=== PATIENT | male | born 2000 | race Two or more races ===

== ENCOUNTER → 2023-10-17 | Outpatient (CLI) | payer MEDICAID ==
[2023-10-17 15:56] LABS: ALBUMIN 3.1 G/DL (3.2-5.2); ALKALINE PHOSPHATASE 74 U/L (46-116); ALT/SGPT 28 U/L (7.0-40); AST/SGOT 24 U/L (<34); BILIRUBIN,TOTAL 0.5 MG/DL (0.3-1.2); BLOOD UREA NITROGEN 18 MG/DL (9-23); CALCIUM LEVEL 8.3 MG/DL (8.5-10.1); CARBON DIOXIDE LEVEL 27 MMOL/L (20-31); CHLORIDE LEVEL 107 MMOL/L (98-107); CREATININE FOR GFR 0.92 MG/DL (0.70-1.30); GLOMERULAR FILTRATION RATE > 60.0 (>60); GLUCOSE, FASTING 78 MG/DL (60-100); SODIUM LEVEL 139 MMOL/L (136-145); TOTAL PROTEIN 8.3 G/DL (5.7-8.2)
[2023-10-17 16:08] LABS: HEPATITIS B SURFACE ANTIGEN NEGATIVE (NEGATIVE)
[2023-10-17 16:29] LABS: HEPATITIS C VIRUS ABY INDEX 0.21 INDEX (<0.8)
[2023-10-20 03:07] LABS: % CD8 Pos Lymph 56.8 % (12.0-35.5); %CD4 Pos Lymphs 11.5 % (30.8-58.5); ABS Eosinophils 0.1 x10E3/uL (0.0-0.4); ABS Lymphs 0.9 x10E3/uL (0.7-3.1); ABS Monocytes 0.3 x10E3/uL (0.1-0.9); ABS Neutophils 2.1 x10E3/uL (1.4-7.0); Abs CD4 Helper 104 /uL (359-1519); Abs CD8 Suppres 511 /uL (109-897); Eosinophils 3 % (Not Estab.); HCT 35.8 % (37.5-51.0); HEPATITIS A IgG TOTAL Positive (Negative); HEPATITIS B CORE ANTIBODY IGG Negative (Negative); HGB 11.8 g/dL (13.0-17.7); HIV-1 RNA PCR QUANT 2 LC550285 520000 copies/mL (.); HIV-1 RNA PCR QUANT 3 LC550285 5.716 (.); HSV TYPE II IgG SPECIFIC <0.91 index (0.00-0.90); Immature Grans 0 % (Not Estab.); Lymphocytes 28 % (Not Estab.); MCH 27.8 pg (26.6-33.0); MCV 84 fL (79-97); Monocytes 8 % (Not Estab.); Neutrophils 60 % (Not Estab.); Platelets 305 x10E3/uL (150-450); RBC 4.24 x10E6/uL (4.14-5.80); RDW 13.3 % (11.6-15.4); TOXOPLASMA IgG ABY <3.0 IU/mL (0.0-7.1); WBC 3.4 x10E3/uL (3.4-10.8)
== END ==
LOC: M PLALAB 11:57
PROVIDERS: ATTEND Internal Medicine Infectious Disease
DX: B20 Human immunodeficiency virus [HIV] disease (principal)

== ENCOUNTER → 2024-01-16 | Outpatient (CLI) | payer MEDICAID, OTHER ==
[2024-01-16 14:25] LABS: ALBUMIN 3.6 G/DL (3.2-5.2); ALKALINE PHOSPHATASE 81 U/L (46-116); ALT/SGPT 23 U/L (7.0-40); AST/SGOT 16 U/L (<34); BILIRUBIN,TOTAL 0.5 MG/DL (0.3-1.2); BLOOD UREA NITROGEN 11 MG/DL (9-23); CALCIUM LEVEL 9.1 MG/DL (8.5-10.1); CARBON DIOXIDE LEVEL 29 MMOL/L (20-31); CHLORIDE LEVEL 106 MMOL/L (98-107); CREATININE FOR GFR 0.61 MG/DL (0.70-1.30); GLOMERULAR FILTRATION RATE > 60.0 (>60); GLUCOSE, FASTING 90 MG/DL (60-100); POTASSIUM SERUM 4.1 MMOL/L (3.5-5.1); SODIUM LEVEL 141 MMOL/L (136-145); TOTAL PROTEIN 8.5 G/DL (5.7-8.2)
[2024-01-17 09:08] LABS: RPR REACTIVE (NON-REACTIVE)
[2024-01-17 14:12] LABS: % CD4+ LYMPHS 6.5 % (30.8-58.5); ABSOLUTE CD4 HELPER 130 /uL (359-1519); BASOPHILS 1 % (Not Estab.); BASOPHILS ABSOLUTE 0.1 x10E3/uL (0.0-0.2); EOSINOPHILS 2 % (Not Estab.); EOSINOPHILS ABSOLUTE 0.2 x10E3/uL (0.0-0.4); HCT 42.4 % (37.5-51.0); HGB 13.6 g/dL (13.0-17.7); LYMPHOCYTES 30 % (Not Estab.); MCH 27.5 pg (26.6-33.0); MCHC 32.1 g/dL (31.5-35.7); MCV 86 fL (79-97); MONOCYTES 10 % (Not Estab.); MONOCYTES ABSOLUTE 0.7 x10E3/uL (0.1-0.9); NEUTROPHILS 56 % (Not Estab.); NEUTROPHILS ABSOLUTE 3.8 x10E3/uL (1.4-7.0); PLT 267 x10E3/uL (150-450); RBC 4.94 x10E6/uL (4.14-5.80); RDW 14.2 % (11.6-15.4); WBC 6.8 x10E3/uL (3.4-10.8)
[2024-01-18 12:19] LABS: HIV-1 RNA PCR QUANT 2 643000 copies/mL (NOT DETECTED); HIV-1 RNA PCR QUANT 3 5.81 (NOT DETECTED); TREPONEMA PALLIDUM ANTIBODIES POSITIVE (NEGATIVE)
== END ==
LOC: M PLALAB 09:05
PROVIDERS: ATTEND Internal Medicine Infectious Disease
DX: B20 Human immunodeficiency virus [HIV] disease (principal)

== ENCOUNTER → 2024-04-30 | Outpatient (CLI) | payer OTHER ==
[2024-04-30 18:18] LABS: APPEARANCE, URINE CLEAR (CLEAR); BACTERIA, URINE AUTO NEGATIVE (NEGATIVE); BILIRUBIN, URINE AUTO NEGATIVE (NEGATIVE); BLOOD, URINE BLOOD NEGATIVE (NEGATIVE); COLOR, URINE YELLOW (YELLOW); GLUCOSE, URINE (UA) AUTO NEGATIVE (NEGATIVE); KETONE, URINE AUTO NEGATIVE (NEGATIVE); LEUKOCYTE ESTERASE, URINE AUTO NEGATIVE (NEGATIVE); NITRITE, URINE AUTO NEGATIVE (NEGATIVE); PROTEIN, URINE AUTO NEGATIVE (NEGATIVE); RBC, URINE AUTO 1 /HPF (0-3); SPECIFIC GRAVITY URINE AUTO 1.023 (1.002-1.035); SQUAMOUS EPITHELIAL CELL UR AU 0 /HPF (0-6); UROBILINOGEN, URINE AUTO 0.2 mg/dL (0.0-2.0); WBC, URINE AUTO 0 /HPF (0-3)
[2024-04-30 18:46] LABS: ALBUMIN 3.6 G/DL (3.2-5.2); ALKALINE PHOSPHATASE 90 U/L (40-129); ALT/SGPT 34 U/L (7.0-40); AST/SGOT 22 U/L (<34); BILIRUBIN,TOTAL 0.3 MG/DL (0.3-1.2); BLOOD UREA NITROGEN 15 MG/DL (9-23); CALCIUM LEVEL 9.8 MG/DL (8.5-10.1); CARBON DIOXIDE LEVEL 28 MMOL/L (20-31); CHLORIDE LEVEL 105 MMOL/L (98-107); CREATININE FOR GFR 0.66 MG/DL (0.70-1.30); GLOMERULAR FILTRATION RATE > 60.0 (>60); GLUCOSE, FASTING 94 MG/DL (60-100); POTASSIUM SERUM 4.3 MMOL/L (3.5-5.1); SODIUM LEVEL 140 MMOL/L (136-145); TOTAL PROTEIN 8.9 G/DL (5.7-8.2)
[2024-04-30 18:53] LABS: HEPATITIS B SURFACE ANTIBODY NEGATIVE (POSITIVE)
[2024-05-02 15:07] LABS: ABSOLUTE CD4 HELPER 198 /uL (359-1519); BASOPHILS 1 % (Not Estab.); BASOPHILS ABSOLUTE 0.1 x10E3/uL (0.0-0.2); COMMENTS FOR T-CELL CD4 Note: (.); EOSINOPHILS 4 % (Not Estab.); EOSINOPHILS ABSOLUTE 0.3 x10E3/uL (0.0-0.4); HCT 41.3 % (37.5-51.0); HGB 13.3 g/dL (13.0-17.7); LYMPHOCYTES 26 % (Not Estab.); LYMPHOCYTES ABSOLUTE 2.2 x10E3/uL (0.7-3.1); MCH 27.9 pg (26.6-33.0); MCHC 32.2 g/dL (31.5-35.7); MCV 87 fL (79-97); MONOCYTES 9 % (Not Estab.); MONOCYTES ABSOLUTE 0.8 x10E3/uL (0.1-0.9); NEUTROPHILS 59 % (Not Estab.); PLT 333 x10E3/uL (150-450); RBC 4.76 x10E6/uL (4.14-5.80); WBC 8.5 x10E3/uL (3.4-10.8)
== END ==
LOC: M PLALAB 14:21
PROVIDERS: ATTEND Internal Medicine Infectious Disease
DX: B20 Human immunodeficiency virus [HIV] disease (principal); Z23 Encounter for immunization; A53.9 Syphilis, unspecified

== ENCOUNTER 2024-05-16 08:05 | Emergency (ER) | payer OTHER ==
[~2024-05-16] VITALS: Ht 160 cm; Wt 81.3 kg
[2024-05-16] MEDS ORDERED: NAPR-885 PO (10:41)
[2024-05-16 10:51] VITALS: BP 124/52; TEMP 98.2; O2SAT 98
== END 2024-05-16 10:53 | disposition home or self-care (01) ==
LOC: M ED 08:05
DX: S60.221A Contusion of right hand, initial encounter (principal); W27.8XXA Contact with other nonpowered hand tool, initial encounter; Y92.9 Unspecified place or not applicable; Y93.9 Activity, unspecified; Y99.0 Civilian activity done for income or pay; B20 Human immunodeficiency virus [HIV] disease; Z86.19 Personal history of other infectious and parasitic diseases

== ENCOUNTER → 2024-05-21 | Outpatient (CLI) | payer OTHER ==
[~2024-05-21] MED LIST: NAPR-885 PO
== END ==
LOC: M PLALAB 13:18
PROVIDERS: ATTEND Internal Medicine Infectious Disease
DX: B20 Human immunodeficiency virus [HIV] disease (principal)

== ENCOUNTER → 2024-07-23 | Outpatient (CLI) | payer OTHER ==
[2024-07-25 11:32] LABS: RPR NON-REACTIVE (NON-REACTIVE)
[2024-07-25 13:48] LABS: HIV-1 RNA PCR QUANT 2 86 copies/mL (NOT DETECTED); HIV-1 RNA PCR QUANT 3 1.93 (NOT DETECTED)
[2024-07-25 18:07] LABS: % CD4+ LYMPHS 11.2 % (30.8-58.5); ABSOLUTE CD4 HELPER 347 /uL (359-1519); BASOPHILS 1 % (Not Estab.); BASOPHILS ABSOLUTE 0.1 x10E3/uL (0.0-0.2); EOSINOPHILS 3 % (Not Estab.); EOSINOPHILS ABSOLUTE 0.3 x10E3/uL (0.0-0.4); HCT 43.3 % (37.5-51.0); HGB 13.9 g/dL (13.0-17.7); Imm ABS Grans 0.1 x10E3/uL (0.0-0.1); Immature Grans 1 % (Not Estab.); LYMPHOCYTES 34 % (Not Estab.); LYMPHOCYTES ABSOLUTE 3.1 x10E3/uL (0.7-3.1); MCHC 32.1 g/dL (31.5-35.7); MCV 87 fL (79-97); MONOCYTES 6 % (Not Estab.); MONOCYTES ABSOLUTE 0.5 x10E3/uL (0.1-0.9); NEUTROPHILS 55 % (Not Estab.); PLT 337 x10E3/uL (150-450); RBC 4.96 x10E6/uL (4.14-5.80); RDW 13.8 % (11.6-15.4)
== END ==
LOC: M PLALAB 15:23
PROVIDERS: ATTEND Internal Medicine Infectious Disease
DX: A53.9 Syphilis, unspecified (principal); B20 Human immunodeficiency virus [HIV] disease

== ENCOUNTER → 2024-12-12 | Outpatient (CLI) | payer OTHER ==
[2024-12-12 15:36] LABS: ALT/SGPT 55 U/L (7.0-40); AST/SGOT 32 U/L (<34); CALCIUM LEVEL 9.3 MG/DL (8.5-10.1); CARBON DIOXIDE LEVEL 26 MMOL/L (20-31); CHLORIDE LEVEL 103 MMOL/L (98-107); CREATININE FOR GFR 0.65 MG/DL (0.70-1.30); GLOMERULAR FILTRATION RATE > 90.0 (>60); POTASSIUM SERUM 4.3 MMOL/L (3.5-5.1); SODIUM LEVEL 138 MMOL/L (136-145)
[2024-12-12 15:38] LABS: FREE T4 1.07 NG/DL (0.89-1.76)
[2024-12-14 03:34] LABS: % CD4 13 % (30-61); %CD8 55 % (12-42); ABSOLUTE CD4 CELLS 325 cells/uL (490-1740); ABSOLUTE CD8 CELLS 1383 cells/uL (180-1170); ABSOLUTE LYMPHOCYTES 2520 cells/uL (850-3900); CD4 CD8 RATIO 0.23 (0.86-5.00)
== END ==
LOC: M PLALAB 12:35
PROVIDERS: ATTEND Internal Medicine Infectious Disease
DX: R63.5 Abnormal weight gain (principal); B20 Human immunodeficiency virus [HIV] disease; A53.9 Syphilis, unspecified

== ENCOUNTER → 2025-04-10 | Outpatient (CLI) | payer OTHER ==
[2025-04-10 14:06] LABS: ALT/SGPT 67 U/L (7.0-40); AST/SGOT 32 U/L (<34); CALCIUM LEVEL 9.3 MG/DL (8.5-10.1); CARBON DIOXIDE LEVEL 29 MMOL/L (20-31); CHLORIDE LEVEL 103 MMOL/L (98-107); CREATININE FOR GFR 0.80 MG/DL (0.70-1.30); GLOMERULAR FILTRATION RATE > 90.0 (>60); POTASSIUM SERUM 4.6 MMOL/L (3.5-5.1); SODIUM LEVEL 141 MMOL/L (136-145)
[2025-04-13 02:07] LABS: HIV-1 RNA PCR QUANT 2 29 copies/mL (NOT DETECTED); HIV-1 RNA PCR QUANT 3 1.46 (NOT DETECTED)
== END ==
LOC: M PLALAB 12:06
PROVIDERS: ATTEND Internal Medicine Infectious Disease
DX: B20 Human immunodeficiency virus [HIV] disease (principal); A53.9 Syphilis, unspecified